=== PATIENT | male | born 1965 | race Caucasian/White ===

== ENCOUNTER 2018-12-11 22:09 | Emergency (ER) | payer OTHER, SELFPAY ==
[2018-12-11] VITALS (13 sets, daily range): BP systolic 120–148; BP diastolic 66–83; PULSE 55–67; RESP 12–21; TEMP 36.6; O2SAT 96–100
--- NOTE | 2018-12-11 21:59 | W.ED.GENAD ---
Discharge Plan Disposition Patient Disposition: HOME Condition: Stable Discharge Details Chief Complaint: Dizzy/Sync Clinical Impression: Syncope ED Provider: Ronnie Antonio Home Meds and New Rx's Prescriptions: No Action sildenafil 25 mg Tablet 25 mg PO DAILY PRNRF: 0 Discharge Instructions Instructions: Syncope (ED) Additional Instructions: Follow up with your primary care provider in 1-2 weeks. Return to the emergency department for chest pain/pressure, difficulty breathing, severe headaches or if you feel significantly more ill Medical Decision Making 52 yo male who denies chronic medical problems comes in after syncope. He was sitting in a restaurant and felt his vision start to go black and then got flushed and fell to the floor from a seated position. He woke up very quick per reports without seizure like activity. He currently is denying any symptoms and denies ever having shortness of breath or chest pain or abd pain or headache. He has no focal neuro deficits on exam. Given this didn't occur with exertion and no sob/cp and no evidence of dvt so doubt entities such as acs or pe. Will eval for anemia, electrolyte abnormalities and monitor on tele pt remains stable and appears well and feels well per him. His labs are unremarkable other than mild increased bun which could indicated mild dehydration. Tele has been normal. Is low risk by [place] syncope rules so feel he can be d/c'd home and f/u with pcp, return precautions given Differential Diagnosis anemia, arrythmia, vasovagal ECG Data Attestation: I personally reviewed and interpreted this ECG (s) as follows: Prior ECG tracings: not available for review Interpretation: sinus rhythm, rate of 60, pr 150, no acute st t wave ischemic findings HPI General Mode of arrival: EMS. Date/Time Provider Initiated Documentation: 12/11/18 22:16. Limitations to Documentation: no limitations. Information obtained by: patient. History of Present Illness 52 year old M presents to the emergency department with the chief complaint of syncope, described as mild, Patient started experiencing this hour(s) (1) and it has been now resolved. No relieving factors improve symptom(s), No exacerbating factors reported . Patient notes no other symptoms.. Patient did receive the following treatments prior to arrival, none Related Data Home Medications Medication Instructions Recorded Confirmed sildenafil 25 mg PO DAILY PRN 12/11/18 12/11/18 Allergies Allergy/AdvReac Type Severity Reaction Status Date / Time No Known Allergies Allergy Unverified 12/11/18 22:15 Review of Systems Review of Systems All systems reviewed & are unremarkable except as noted in HPI and below Constitutional Denies chills, Denies fever(s) and Denies weakness ENT Denies change in voice Cardiovascular Denies chest pain and Denies dyspnea Respiratory Denies cough and Denies dyspnea Gastrointestinal Denies abdominal pain, Denies nausea and Denies vomiting Musculoskeletal Denies joint swelling Integumentary/Breasts Denies rash Neurologic Denies weakness [facility] Social History Smoking/Tobacco Use Status: Never Alcohol Intake: current Alcohol Intake frequency: a few times a week Substance use type: does not use Additional Social history: unable to assess privately. Exam Const General: no acute distress Orientation: alert HENMT Head: normal to inspection Ears: external ears normal General nose exam: external nose normal Mouth: moist mucous membranes Eyes General: appearance normal, both eyes and all related structures Neck Neck: normal visual inspection Resp Effort & Inspection: normal respiratory effort and able to speak in complete sentences Cardio Rate: regular rate Skin General skin exam: no rashes or lesions noted Neuro General: alert and oriented x3 Extrem General: normal to inspection Psych Mental Status: mental status grossly normal
--- NOTE | 2018-12-11 22:30 | ED.GENADUL_ITS ---
Discharge Plan Disposition Patient Disposition: HOME Condition: Stable Discharge Details Chief Complaint: Dizzy/Sync Clinical Impression: Syncope ED Provider: Ronnie Antonio Home Meds and New Rx's Prescriptions: No Action sildenafil 25 mg Tablet 25 mg PO DAILY PRNRF: 0 Discharge Instructions Instructions: Syncope (ED) Additional Instructions: Follow up with your primary care provider in 1-2 weeks. Return to the emergency department for chest pain/pressure, difficulty breathing, severe headaches or if you feel significantly more ill Medical Decision Making 52 yo male who denies chronic medical problems comes in after syncope. He was sitting in a restaurant and felt his vision start to go black and then got flushed and fell to the floor from a seated position. He woke up very quick per reports without seizure like activity. He currently is denying any symptoms and denies ever having shortness of breath or chest pain or abd pain or headache. He has no focal neuro deficits on exam. Given this didn't occur with exertion and no sob/cp and no evidence of dvt so doubt entities such as acs or pe. Will eval for anemia, electrolyte abnormalities and monitor on tele pt remains stable and appears well and feels well per him. His labs are unremarkable other than mild increased bun which could indicated mild dehydration. Tele has been normal. Is low risk by [place] syncope rules so feel he can be d/c'd home and f/u with pcp, return precautions given Differential Diagnosis anemia, arrythmia, vasovagal ECG Data Attestation: I personally reviewed and interpreted this ECG (s) as follows: Prior ECG tracings: not available for review Interpretation: sinus rhythm, rate of 60, pr 150, no acute st t wave ischemic findings HPI General Mode of arrival: EMS . Date/Time Provider Initiated Documentation: 12/11/18 22:16 . Limitations to Documentation: no limitations . Information obtained by: patient . History of Present Illness 52 year old M presents to the emergency department with the chief complaint of syncope, described as mild, Patient started experiencing this hour(s) (1) and it has been now resolved. No relieving factors improve symptom(s), No exacerbating factors reported . Patient notes no other symptoms.. Patient did receive the following treatments prior to arrival, none Related Data Home Medications Medication Instructions Recorded Confirmed sildenafil 25 mg PO DAILY PRN 12/11/18 12/11/18 Allergies Allergy/AdvReac Type Severity Reaction Status Date / Time No Known Allergies Allergy Unverified 12/11/18 22:15 Review of Systems Review of Systems All systems reviewed & are unremarkable except as noted in HPI and below Constitutional Denies chills, Denies fever(s) and Denies weakness ENT Denies change in voice Cardiovascular Denies chest pain and Denies dyspnea Respiratory Denies cough and Denies dyspnea Gastrointestinal Denies abdominal pain, Denies nausea and Denies vomiting Musculoskeletal Denies joint swelling Integumentary/Breasts Denies rash Neurologic Denies weakness [facility] Social History Smoking/Tobacco Use Status: Never Alcohol Intake: current Alcohol Intake frequency: a few times a week Substance use type: does not use Additional Social history: unable to assess privately. Exam Const General: no acute distress Orientation: alert HENMT Head: normal to inspection Ears: external ears normal General nose exam: external nose normal Mouth: moist mucous membranes Eyes General: appearance normal, both eyes and all related structures Neck Neck: normal visual inspection Resp Effort & Inspection: normal respiratory effort and able to speak in complete sentences Cardio Rate: regular rate Skin General skin exam: no rashes or lesions noted Neuro General: alert and oriented x3 Extrem General: normal to inspection Psych Mental Status: mental status grossly normal
[2018-12-11] MEDS: Normal Saline 1,000 ML 1000 ML IV (22:36)
[2018-12-11 22:40] LABS: Abs Immature Grans 0.02 k/cumm (0.0-0.09); Absolute Basophil Count 0.05 k/cumm (0.0-0.2); Absolute Eosinophil Count 0.33 k/cumm (0.0-0.7); Absolute Lymphocyte Count 2.76 k/cumm (1.2-3.4); Absolute Monocyte Count 0.73 k/cumm (0.11-0.7); Absolute Neutrophil Count 3.91 k/cumm (1.2-6.7); Basophils % 0.6; Eosinophils % 4.2; HGB 13.6 g/dL (13.5-17.5); Immature Grans % 0.3; Lymphocytes % 35.4; Mean Corp. HGB Concentration 33.2 g/dL (32.0-36.0); Mean Corpuscular Hemoglobin 29.2 pg (27.0-33.0); Mean Corpuscular Volume 88.2 fL (80-95); Mean Platelet Volume 10.1 fL (8.0-11.0); Monocytes % 9.4; Neutrophils % 50.1; Platelet Count 307 x1000/uL (130-400); RBC 4.65 m/cumm (4.50-6.00); RBC Distribution Width 13.9 % (11.8-14.1)
[2018-12-11 22:57] LABS: ALT 22 U/L (12-78); AST 17 U/L (15-37); Albumin 3.6 g/dL (3.4-5.0); Alkaline Phosphatase 53 U/L (46-116); Anion Gap 12.5 mmol/L (3-11); BUN 20 mg/dL (7-18); Bilirubin, Total 0.4 mg/dL (0.2-1.0); CO2 26.5 mmol/L (21.0-32.0); CREATININE 1.29 mg/dL (0.70-1.30); Calcium 8.7 mg/dL (8.5-10.1); Chloride 102 mmol/L (98-107); Estimated GFR 58.96 (mL/min/1.73m2); Glucose 125 mg/dL (70-100); Potassium 3.5 mmol/L (3.5-5.1); Sodium 141 mmol/L (136-145); Total Protein 7.1 g/dL (6.4-8.2)
[2018-12-11 22:59] LABS: Troponin I < 0.02 ng/mL (0.00-0.06)
[2018-12-11 23:07] LABS: ETHANOL BLOOD 25.2 mg/dL (<3); Magnesium 1.8 mg/dL (1.8-2.4); NT-proBNP 22 pg/mL
[2018-12-11 23:23] LABS: PTT Activated 20.5 sec (21.0-31.4); Prothrombin Time 9.6 sec (9.3-11.0)
== END 2018-12-11 23:30 | disposition home or self-care (01) ==
PROVIDERS: Emergency Provider Emergency Medicine
DX: R55 Syncope and collapse (principal)
CPT/HCPCS: 36415; 80053; 93005; 96360; 99284; 80320; 83735; 83880; 84484; 85025; 85610; 85730; 93010; J3490